=== PATIENT | female | born 1955 | race Hispanic/Latino ===

== ENCOUNTER 2018-03-21 11:49 | Emergency (ER) | payer OTHER ==
--- NOTE | 2018-03-21 13:07 | ER ---
Nurse's Notes [facility] Name: Bertha Ricks Age: 62 yrs Sex: Female : 1955 Arrival Date: 03/21/2018 Time: 11:55 Bed 24 Private MD: None, None Diagnosis: Juvenile arthritis, unspecified, left hip Presentation: 03/21 12:16 Presenting complaint: Patient states: chronic low back pain that has gotten worse over aa5 the last few months. Pt states "the pain goes down my left leg and I can't sleep because of the pain". Pt also reports cough. Transition of care: patient was not received from another setting of care. Onset of symptoms was February 2018. Risk Assessment: Do you want to hurt yourself or someone else? Patient reports no desire to harm self or others. Initial Sepsis Screen: Does the patient meet any 2 criteria? No. Patient's initial sepsis screen is negative. Does the patient have a suspected source of infection? No. Patient's initial sepsis screen is negative. Care prior to arrival: None. 12:16 Method Of Arrival: Ambulatory aa5 12:16 Acuity: HERMANN 4 aa5 Historical: - Allergies: 12:18 No Known Allergies; aa5 - PMHx: 12:18 Hepatitis C; aa5 - PSHx: 12:18 Hysterectomy; aa5 - Immunization history:: Adult Immunizations unknown. - Social history:: Smoking status: Patient uses tobacco products, smokes one-half pack cigarettes per day, Patient/guardian denies using alcohol, street drugs, The patient lives with family. - Ebola Screening: : No symptoms or risks identified at this time. - Family history:: not pertinent. Screenin:44 Abuse screen: Denies threats or abuse. Denies injuries from another. Nutritional aj screening: No deficits noted. Tuberculosis screening: No symptoms or risk factors identified. Fall Risk None identified. Assessment: 12:44 General: Appears in no apparent distress. comfortable, Behavior is calm, cooperative, aj appropriate for age. Pain: Complains of pain in left low back, left hip, lateral aspect of left thigh, left gluteal fold and left hamstring. Neuro: Level of Consciousness is awake, alert, obeys commands, Oriented to person, place, time, situation, Appropriate for age. Respiratory: Airway is patent Respiratory effort is even, unlabored, Respiratory pattern is regular, symmetrical. Derm: Skin is intact, is healthy with good turgor, Skin is pink, warm \\T\\ dry. normal. Musculoskeletal: Reports pain in left low back, left hip, lateral aspect of left thigh, left gluteal fold and left hamstring. Vital Signs: 12:18 BP 124 / 71; Pulse 96; Resp 18 S; Temp 99.2(TE); Pulse Ox 97% on R/A; Weight 83.91 kg aa5 (R); Height 5 ft. 5 in. (165.10 cm) (R); Pain 10/10; 13:48 BP 159 / 79; Pulse 79; Resp 18; Pulse Ox 97% on R/A; aj 12:18 Body Mass Index 30.79 (83.91 kg, 165.10 cm) aa5 ED Course: 11:55 Patient arrived in ED. sb2 11:55 None, None is Private Physician. sb2 12:16 Arm band placed on. aa5 12:17 Triage completed. aa5 12:33 Fracisco Alfonso MD is Attending Physician. ma2 12:35 Echo Lai, RN is Primary Nurse. aj 12:44 Patient has correct armband on for positive identification. aj 12:44 No provider procedures requiring assistance completed. aj 13:48 Patient did not have IV access during this emergency room visit. aj Administered Medications: 13:12 Drug: TORadol 60 mg Route: IM; Site: right gluteus; aj 13:45 Follow up: Response: Pain is decreased aj Outcome: 13:07 Discharge ordered by . ma2 13:48 Discharged to home via wheelchair. aj 13:48 Condition: good 13:48 Discharge instructions given to patient, Instructed on discharge instructions, follow up and referral plans. medication usage, Demonstrated understanding of instructions, follow-up care, medications, Prescriptions given X 1. 13:49 Patient left the ED. aj Signatures: Echo Lai, RN RN Dayna Lott RN RN aa5 Fracisco Alfonso MD MD ma2 Billeau, Sheri sb2
--- NOTE | 2018-03-21 13:08 | EDPHYS ---
Physician Documentation [facility] Name: Bertha Ricks Age: 62 yrs Sex: Female : 1955 Arrival Date: 03/21/2018 Time: 11:55 Bed 24 Private MD: None, None ED Physician Fracisco Alfonso HPI: 03/21 13:03 This 62 yrs old Female presents to ER via Ambulatory with complaints of Back ma2 Pain. 13:03 The patient presents with pain that is chronic. The symptoms are located in the low ma2 back. Onset: The symptoms/episode began/occurred gradually, 3 month(s) ago. Associated signs and symptoms: Pertinent negatives: abdominal pain, chest pain, constipation, dysuria, incontinence, nausea, numbness, tingling, urinary retention, vomiting, weakness. Severity of symptoms: At their worst the symptoms were moderate, in the emergency department the symptoms are unchanged. The patient has experienced similar episodes in the past. left hip pain x 2 month . Historical: - Allergies: 12:18 No Known Allergies; aa5 - PMHx: 12:18 Hepatitis C; aa5 - PSHx: 12:18 Hysterectomy; aa5 - Immunization history:: Adult Immunizations unknown. - Social history:: Smoking status: Patient uses tobacco products, smokes one-half pack cigarettes per day, Patient/guardian denies using alcohol, street drugs, The patient lives with family. - Ebola Screening: : No symptoms or risks identified at this time. - Family history:: not pertinent. ROS: 13:03 Constitutional: Negative for fever, chills, and weight loss, Cardiovascular: Negative ma2 for chest pain, palpitations, and edema, Respiratory: Negative for shortness of breath, cough, wheezing, and pleuritic chest pain, Abdomen/GI: Negative for abdominal pain, nausea, diarrhea, and constipation. 13:03 MS/extremity: Positive for pain, Negative for acute changes, injury or acute deformity, bite, decreased range of motion, ecchymosis, erythema. 13:03 All other systems are negative. Exam: 13:03 Constitutional: This is a well developed, well nourished patient who is awake, alert, ma2 and in no acute distress. Neck: Trachea midline, no thyromegaly or masses palpated, and no cervical lymphadenopathy. Supple, full range of motion without nuchal rigidity, or vertebral point tenderness. No Meningismus. Chest/axilla: Normal chest wall appearance and motion. Nontender with no deformity. No lesions are appreciated. Cardiovascular: Regular rate and rhythm with a normal S1 and S2. No gallops, murmurs, or rubs. Normal PMI, no JVD. No pulse deficits. Respiratory: Lungs have equal breath sounds bilaterally, clear to auscultation and percussion. No rales, rhonchi or wheezes noted. No increased work of breathing, no retractions or nasal flaring. Abdomen/GI: Soft, non-tender, with normal bowel sounds. No distension or tympany. No guarding or rebound. No evidence of tenderness throughout. 13:03 Musculoskeletal/extremity: ROM: limited active range of motion due to pain, limited passive range of motion due to pain, left hip, Circulation is intact in all extremities. Sensation intact. Vital Signs: 12:18 BP 124 / 71; Pulse 96; Resp 18 S; Temp 99.2(TE); Pulse Ox 97% on R/A; Weight 83.91 kg aa5 (R); Height 5 ft. 5 in. (165.10 cm) (R); Pain 10/10; 13:48 BP 159 / 79; Pulse 79; Resp 18; Pulse Ox 97% on R/A; aj 12:18 Body Mass Index 30.79 (83.91 kg, 165.10 cm) aa5 MDM: 12:33 Patient medically screened. ma2 13:03 Differential diagnosis: Scoliosis sprain, arthritis. Data reviewed: vital signs, nurses ma2 notes, old medical records, lab test result(s), radiologic studies. Counseling: I had a detailed discussion with the patient and/or guardian regarding: the historical points, exam findings, and any diagnostic results supporting the discharge/admit diagnosis, the presence of at least one elevated blood pressure reading (>120/80) during this emergency department visit, the need for outpatient follow up. Response to treatment: the patient's symptoms have markedly improved after treatment. Administered Medications: 13:12 Drug: TORadol 60 mg Route: IM; Site: right gluteus; aj 13:45 Follow up: Response: Pain is decreased aj Disposition: 03/21/18 13:07 Discharged to Home. Impression: Juvenile arthritis, unspecified, left hip. - Condition is Stable. - Discharge Instructions: Arthritis, [id number]. - Prescriptions for Tylenol- Codeine #3 300-30 mg Oral Tablet - take 2 tablet by ORAL route every 6 hours As needed; 6 tablet. Medrol (Morteza) 4 mg Oral Tablets, Dose Pack - take 1 tablet by ORAL route as directed - follow package instructions; 1 packet. - Medication Reconciliation Form, Thank You Letter, Antibiotic Education, Prescription Opioid Use form. - Follow up: Private Physician; When: Tomorrow; Reason: Continuance of care. Signatures: Echo Lai RN RN Dayna Lott RN RN aa5 Fracisco Alfonso MD MD ma2 Corrections: (The following items were deleted from the chart) 13:49 13:07 03/21/2018 13:07 Discharged to Home. Impression: Juvenile arthritis, unspecified, aj left hip. Condition is Stable. Forms are Medication Reconciliation Form, Thank You Letter, Antibiotic Education, Prescription Opioid Use. Follow up: Private Physician; When: Tomorrow; Reason: Continuance of care. ma2
[2018-03-21] MEDS ORDERED: KETOROLAC 30 MG/ML INJ ONE (13:17)
[2018-03-21 14:08] VITALS: TEMP 99.2; O2SAT 97
[2018-03-21 14:09] VITALS: BP 159/79
== END 2018-03-21 13:49 | disposition home or self-care (01) ==
LOC: ER 11:49
DX: M08.9 Juvenile arthritis, unspecified (principal); Z86.19 Personal history of other infectious and parasitic diseases; F17.210 Nicotine dependence, cigarettes, uncomplicated
CPT/HCPCS: 96372; 99283